=== PATIENT | female | born 1930 | race Caucasian/White ===

== ENCOUNTER → 2016-06-20 | Outpatient (CLI) | payer MEDICARE ==
[~2016-06-20] MED LIST: ACETAMINOPHEN PO; ACETAMINOPHEN500 M3 PO; ALLEGRA180 MG PO; AREDS PO; ARTHROTEC 501 TAB.EC PO; ARTHROTEC EC 71 EAC1 PO; BENADRYL PO; CENTRUM PO; COLON HEALTH PO; FLEXERIL10 MG PO; LOSARTAN-HCTZ1 EAC2 PO; NEXIUM PO; NORCO 5/325 TAB1 TAB PO; OYSTER CALCIUM500 MG PO; PRESERVISION1 EA PO; PROBIOTIC1 EACH PO; VITAMIN D1000 UNI1 PO; ZYRTEC PO
--- NOTE | ~2016-06-20 | CT57 ---
[facility] A Service of [facility] RADIOLOGY TEXT RESULTS PATIENT: Cayden RIVERA LOCATION: [facility] : [birth year] UNIT #: [id number] AGE: [address]: Zia Levine MD SEX: F ORDER DR: [id number] [facility]. [place], [place] [address] [id number] O MR#: [id number] Acc #: [id number] NAME: Cayden RIVERA : 1930 SEX: F STUDY DATE/TIME: 06/20/2016 9:10 UNIT: [facility] ROOM: STUDY DESCRIPTION: CT Chest Wo Cont Attending Physician: Zia Levine M.D. Referring Physician: Zia Levine M.D. Ordering Physician: Zia Levine M.D. Primary Care Physician: Zia Levine M.D. MEDICAL IMAGING REPORT This report is preliminary unless electronic signature is present EXAM CT of the chest without contrast INDICATION Pulmonary nodule. This is a followup study. Patient was found to have pulmonary nodules in September of 2015. TECHNIQUE Axial CT images were obtained from the thoracic inlet through the dome of the diaphragm. No intravenous contrast material was administered. This CT exam was performed with one or more of the following radiation dose reduction techniques: automatic exposure control, adjustment of mA and/or kV according to patient size, and iterative reconstruction. FINDINGS Background emphysematous changes are noted. Patient has biapical scarring. Several scattered noncalcified pulmonary nodules seen within both lungs have not significantly changed when compared to the exam from September of 2015. No new nodules are identified. The thyroid gland and trachea appear within normal limits. There is a small hiatal hernia. Shotty mediastinal lymph nodes are noted. These are not significantly changed when compared to September of 2015. There are coronary artery calcifications. There is no pleural or pericardial effusion. Images through the upper abdomen do not demonstrate any acute abnormalities. Pancreas is atrophic. There is colonic diverticulosis without any evidence of diverticulitis within the visualized segments of the bowel. Review of bony windows does not demonstrate any aggressive osseous abnormalities. IMPRESSION [facility] A Service of [facility] RADIOLOGY TEXT RESULTS PATIENT: Cayedn RIVERA LOCATION: [facility] : [birth year] UNIT #: [id number] AGE: [address]: Zia Levine MD SEX: F ORDER DR: 1. Several scattered noncalcified pulmonary nodules within both lungs have been unchanged since September of 2015. They are favored to be benign but a short-term follow up exam in September of 2017 is recommended to document a full 2 years of stability. No new pulmonary nodules or masses are seen. 2. Small hiatal hernia. 3. Please see the body of the report for any other additional incidental findings. Dictated by... Miriam Sotomayor M.D. THIS IS AN ELECTRONICALLY VERIFIED REPORT Miriam Sotomayor M.D. at 06/20/2016 5:23 PM AFF/aa TD: 06/20/2016 15:11 JOB #: [id number] MEDICAL IMAGING REPORT Page 1 of 1 COPY
== END | disposition home or self-care (01) ==
LOC: CCAT 08:29
DX: R91.1 Solitary pulmonary nodule (principal); R91.8 Other nonspecific abnormal finding of lung field; K44.9 Diaphragmatic hernia without obstruction or gangrene
CPT/HCPCS: 71250

== ENCOUNTER → 2016-09-25 | Day surgery (SDC) | payer MEDICARE ==
--- NOTE | ~2016-09-25 | OR ---
Unit #: [id number] #: [id number] Patient: Cayden RIVERA [id number] [address] [address] [id number] O MR#: [id number] NAME: Cayden RIVERA ROOM: Date of Procedure: 09/25/2016 Admission Date: 09/25/2016 Surgeon: Robin Gutierrez M.D. : 1930 Attending Physician: Robin Gutierrez M.D. Primary Care Physician: Zia Levine M.D. OPERATIVE REPORT PREOPERATIVE DIAGNOSES Back pain, radiculopathy, spinal stenosis, degenerative disk disease. POSTOPERATIVE DIAGNOSES Back pain, radiculopathy, spinal stenosis, degenerative disk disease. PROCEDURE PERFORMED Lumbar epidural steroid injection with fluoroscopic guidance and needle localization. INDICATIONS FOR PROCEDURE The patient is an 86-year-old female with return of back and right greater than left lower extremity pain, nonsurgical pathology associated with spinal stenosis, degenerative disk disease, and arachnoiditis. She was last treated with epidural steroid injections little over two years ago and did very well with two injections at that point. Plan is to repeat injection at this point based on history, pathology, symptomatology, and treatment options. DESCRIPTION OF PROCEDURE The patient was placed in a seated position. Standard monitors were applied. Sterile prep and drape of the lumbar area was performed. The skin at the right of midline at the L4 level was localized with 1% lidocaine. An 18-gauge Hustead needle was then advanced via right paramedian approach via loss of resistance technique in toward the epidural space. The patient did not complain of pain or paresthesia during needle advancement. After confirming proper needle tip positioning with fluoroscopy and radiographic contrast, 80 mg of Depo-Medrol and 4 mL of 0.5% lidocaine were deposited. The patient tolerated the procedure otherwise well and was discharged to the recovery room in stable condition. Dictated by... Robin Gutierrez M.D. LHP/kevenl TD: 09/25/2016 10:36 JOB #: [id number] Unit #: [id number] #: [id number] Patient: Cayden RIVERA OPERATIVE REPORT Page 1 of 1 X Robin Gutierrez MD X PROCEDURE OPERATIVE NOTE
== END | disposition home or self-care (01) ==
LOC: CCSC 08:46
DX: M51.16 Intervertebral disc disorders with radiculopathy, lumbar region (principal); M48.06 Spinal stenosis, lumbar region; I10 Essential (primary) hypertension; M19.90 Unspecified osteoarthritis, unspecified site; Z88.2 Allergy status to sulfonamides; Z88.1 Allergy status to other antibiotic agents; Z79.899 Other long term (current) drug therapy
CPT/HCPCS: J1040; J2250

== ENCOUNTER → 2016-10-09 | Day surgery (SDC) | payer MEDICARE ==
--- NOTE | ~2016-10-09 | OR ---
Unit #: [id number] #: [id number] Patient: Cayden RIVERA [id number] [address] [address] [id number] O MR#: [id number] NAME: Cayden RIVERA ROOM: Date of Procedure: 10/09/2016 Admission Date: 10/09/2016 Surgeon: Robin Gutierrez M.D. : 1930 Attending Physician: Robin Gutierrez M.D. Primary Care Physician: Zia Levine M.D. OPERATIVE REPORT JOB NOTE: CC: [facility] PREOPERATIVE DIAGNOSES Back pain, radiculopathy, degenerative disk disease, spinal stenosis. POSTOPERATIVE DIAGNOSES Back pain, radiculopathy, degenerative disk disease, spinal stenosis. PROCEDURE PERFORMED Lumbar epidural steroid injection with fluoroscopic guidance for needle localization. INDICATIONS FOR PROCEDURE The patient is an 86-year-old female with return of back and right greater than left lower extremity associated with known degenerative disk disease, spinal stenosis, and arachnoiditis. In the past, she was treated with a series of 2 epidural steroid injections. She had been done well for almost 3 years. She had return of symptoms. Repeat injection was done 2 weeks ago resulted in significant improvement in her back, moderate improvement in her hip and lower extremity. Based on good partial response, her prior response, history, pathology, and current symptomatology, we are going to proceed with a second injection today. DESCRIPTION OF PROCEDURE The patient was placed in a seated position. Standard monitors were applied. Sterile prep and drape of the lumbar area were performed. The skin then at the L3-L4 level was localized with 1% lidocaine just to the right of midline. After confirming proper positioning with fluoroscopy and radiographic contrast, 80 mg of Depo-Medrol and 4 mL of 0.5% lidocaine were deposited. The patient tolerated the procedure otherwise well and was discharged to the recovery room in stable condition. Dictated by... Isael Kebede/geni TD: 10/09/2016 18:02 JOB #: [id number] Unit #: [id number] #: [id number] Patient: Cayden RIVERA OPERATIVE REPORT Page 1 of 1 X Robin Gutierrez MD X PROCEDURE OPERATIVE NOTE
== END | disposition home or self-care (01) ==
LOC: CCSC 08:49
DX: M51.16 Intervertebral disc disorders with radiculopathy, lumbar region (principal); M48.02 Spinal stenosis, cervical region; I10 Essential (primary) hypertension; M19.90 Unspecified osteoarthritis, unspecified site; Z88.1 Allergy status to other antibiotic agents; Z88.2 Allergy status to sulfonamides; Z79.899 Other long term (current) drug therapy
CPT/HCPCS: J1040; J2250

== ENCOUNTER → 2016-10-23 | Day surgery (SDC) | payer MEDICARE ==
--- NOTE | ~2016-10-23 | OR ---
Unit #: [id number] #: [id number] Patient: Cayden RIVERA [id number] [address] [address] [id number] O MR#: [id number] NAME: Cayden RIVERA ROOM: Date of Procedure: 10/23/2016 Admission Date: 10/23/2016 Surgeon: Robin Gutierrez M.D. : 1930 Attending Physician: Robin Gutierrez M.D. Primary Care Physician: Zia Levine M.D. OPERATIVE REPORT PREOPERATIVE DIAGNOSES Back pain, radiculopathy, spinal stenosis, spondylolisthesis, degenerative disk disease. POSTOPERATIVE DIAGNOSES Back pain, radiculopathy, spinal stenosis, spondylolisthesis, degenerative disk disease. PROCEDURE PERFORMED Lumbar epidural steroid injection with fluoroscopic guidance for needle localization. INDICATIONS FOR PROCEDURE The patient is an 86-year-old female with return of back and right greater than left lower extremity pain due to previously mentioned diagnosis. She also has arachnoiditis. In the past, epidural steroid injections given her almost 3 years of improvement. The decision was made to repeat these. Two have been done over the last month or so with additive significant reduction in her symptom complex and that of increased mobility for ADLs. She is not quite back down to the pain level that have able to achieve in the past, so we are going to proceed with a final injection at this point. Fluoroscopy was also shown spondylolisthesis grade 2 at the L5-S1 level, grade 1 at L4-L5 in addition to her other pathology. DESCRIPTION OF PROCEDURE The patient was placed in a seated position. Standard monitors were applied. Sterile prep and drape of the lumbar area were performed. The skin then to the right of midline at the L4 level was localized with 1% lidocaine. An 18-gauge Brandkidstead needle was then advanced via right paramedian approach and loss of resistance technique in toward the epidural space. The patient did not complain of pain or paresthesia during needle advancement. After confirming proper needle tip positioning with fluoroscopy and radiographic contrast, a dose of 80 mg Depo-Medrol and 4 mL of 0.125% bupivacaine were deposited. The patient tolerated the procedure otherwise well and was discharged to the recovery room in stable condition. Dictated by... Isael Kebede/geni Unit #: [id number] #: [id number] Patient: Cayden RIVERA TD: 10/23/2016 13:31 JOB #: [id number] OPERATIVE REPORT Page 1 of 1 X Robin Gutierrez MD X PROCEDURE OPERATIVE NOTE
== END | disposition home or self-care (01) ==
LOC: CCSC 09:02
DX: M51.16 Intervertebral disc disorders with radiculopathy, lumbar region (principal); M43.16 Spondylolisthesis, lumbar region; M48.06 Spinal stenosis, lumbar region; I10 Essential (primary) hypertension; M19.90 Unspecified osteoarthritis, unspecified site; Z88.2 Allergy status to sulfonamides; Z88.1 Allergy status to other antibiotic agents; Z79.899 Other long term (current) drug therapy
CPT/HCPCS: J1040; J2250